=== PATIENT | male | born 1965 | race Caucasian/White ===

== ENCOUNTER 2016-11-14 23:58 | Emergency (ER) | payer SELFPAY ==
[~2016-11-14] VITALS: Ht 172.7 cm; Wt 79.4 kg
[2016-11-14 23:58] VITALS: BP 184/94; PULSE 104; RESP 20; TEMP 99.5; O2SAT 96
[2016-11-15] MEDS ORDERED: NACL 0.9% 1,000 ML IV ONE
== END 2016-11-15 00:20 | disposition left against medical advice (07) ==
LOC: SED 23:58
DX: G40.89 Other seizures (principal); R03.0 Elevated blood-pressure reading, without diagnosis of hypertension; Z53.20 Procedure and treatment not carried out because of patient's decision for unspecified reasons; S00.512A Abrasion of oral cavity, initial encounter; X58.XXXA Exposure to other specified factors, initial encounter; Y93.89 Activity, other specified; Y92.89 Other specified places as the place of occurrence of the external cause; Y99.8 Other external cause status
CPT/HCPCS: 99283

== ENCOUNTER 2016-12-24 13:01 | Inpatient (IN) | payer SELFPAY ==
[~2016-12-24] VITALS: Ht 175.3 cm; Wt 79.4 kg
[2016-12-24 13:01] VITALS: BP_SYST 139
[2016-12-24] MEDS ORDERED: NACL 0.9% 1,000 ML IV ONE (13:08)
[2016-12-24] MEDS ORDERED: ONDANSETRON HCL 4 MG/2 ML VIAL IVP ONE ×2 (13:15→15:00)
[2016-12-24] MEDS ORDERED: BACITRACIN 1 GM OINT TP ONE (13:15)
[2016-12-24] MEDS ORDERED: MORPHINE 4 MG/ML INJ. SYRINGE IVP ONE ×2 (13:15→15:00)
[2016-12-24] MEDS ORDERED: DIPH-TET-PERTUS Vaccine 0.5 ML VIAL (ADACEL) IM ONE (13:15)
[2016-12-24] MEDS ORDERED: IOHEXOL 100 ML IV ONE (13:30)
[2016-12-24 13:39] LABS: BASOPHILS # (AUTO) 0.1 K/uL (0.0-0.2); BASOPHILS % (AUTO) 0.5 % (0.0-2.0); EOSINOPHILS # (AUTO) 0.2 K/uL (0.0-0.4); EOSINOPHILS % (AUTO) 2.3 % (0.0-4.0); HEMATOCRIT 40.6 % (36-54); HEMOGLOBIN 13.7 g/dL (14.0-18.0); LYMPHOCYTES # (AUTO) 1.8 K/uL (1.0-5.5); LYMPHOCYTES % (AUTO) 16.7 % (20.5-51.5); MEAN CORPUSCULAR HEMOGLOBIN 33 pg (27-31); MEAN CORPUSCULAR HGB CONC 34 % (32-36); MEAN CORPUSCULAR VOLUME 97 fL (79.0-98.0); MONOCYTES # (AUTO) 0.8 K/uL (0.0-1.0); MONOCYTES % (AUTO) 7.7 % (1.7-9.3); NEUTROPHILS # (AUTO) 7.8 K/uL (1.8-7.7); NEUTROPHILS % (AUTO) 72.8 % (40.0-70.0); PLATELET COUNT (AUTO) 260 K/uL (130-430); RED BLOOD CELL COUNT(AUTO) 4.18 MIL/uL (4.2-6.2); RED CELL DISTRIBUTION WIDTH 12.9 % (9.0-15.0); WHITE BLOOD COUNT (AUTO) 10.6 K/uL (4.8-10.8)
[2016-12-24 13:48] LABS: ANION GAP 8 (5-15); CALCIUM 8.9 mg/dL (8.4-11.0); CHLORIDE 106 mmol/L (98-107); CREATININE 0.91 mg/dL (0.55-1.30); GLUCOSE 110 mg/dL (70-99); POTASSIUM 3.8 mmol/L (3.5-5.1); SODIUM SERUM 140 mmol/L (136-145); UREA NITROGEN, BLOOD 17 mg/dL (8-21)
[2016-12-24 13:49] LABS: PROTHROMBIN TIME 10.8 SECS (9.5-12.5)
[2016-12-24 13:50] LABS: GFR AFRICAN AMERICAN 113 mL/min (>90)
[2016-12-24 13:53] LABS: ALANINE AMINOTRANSFERASE 30 U/L (12-78); ALBUMIN 4.1 g/dL (3.4-4.8); ASPARTATE AMINOTRANSFERASE 29 U/L (10-37); LIPASE 195 U/L (73-393); TOTAL BILIRUBIN 0.7 mg/dL (0.0-1.0); TOTAL PROTEIN, SERUM 7.1 g/dL (6.4-8.3)
[2016-12-24 13:59] LABS: ALCOHOL, BLOOD < 3 mg/dL (<10)
[2016-12-24] MEDS ORDERED: CEFAZOLIN 1 GM IVPB PREMIX 50 ML IV ONE (14:15)
[2016-12-24 15:37] LABS: BILIRUBIN,URINE NEGATIVE (NEGATIVE); BLOOD, URINE NEGATIVE (NEGATIVE); CLARITY/URINE CLEAR (CLEAR); COLOR,URINE YELLOW (YELLOW); GLUCOSE,URINE NEGATIVE (NEGATIVE); KETONES,URINE TRACE (NEGATIVE); LEUKOCYTE ESTERASE ,URINE NEGATIVE (NEGATIVE); NITRITE, URINE NEGATIVE (NEGATIVE); PROTEIN URINE NEGATIVE (NEGATIVE); UROBILINOGEN,URINE 0.2 (0.2-1.0)
[2016-12-24 16:56] VITALS: BP_SYST 157
[2016-12-24] MEDS: MORPHINE 2 MG/ML INJ. SYRINGE IVP PRN ×2 (18:27→22:29)
[2016-12-24 20:00] VITALS: BP_SYST 152
[2016-12-24] MEDS ORDERED: MORPHINE 2 MG/ML INJ. SYRINGE IVP PRN (21:15)
[2016-12-24] MEDS ORDERED: LORazepam 2 MG/ML VIAL IVP PRN (21:15)
[2016-12-24] MEDS ORDERED: ONDANSETRON HCL 4 MG/2 ML VIAL IVP PRN (21:15)
[2016-12-24] MEDS ORDERED: MAGNESIUM SULFATE 50 ML IV PRN (21:15)
[2016-12-24] MEDS ORDERED: POTASSIUM CHLORIDE 10 MEQ TAB.PRT.SR PO PRN (21:15)
[2016-12-24] MEDS ORDERED: ACETAMINOPHEN 325 MG TABLET PO PRN (21:15)
[2016-12-24] MEDS ORDERED: DOCUSATE SODIUM 100 MG CAPSULE PO PRN (21:15)
[2016-12-25 00:18] VITALS: BP_SYST 143
[2016-12-25] MEDS: MORPHINE 2 MG/ML INJ. SYRINGE IVP PRN ×2 (02:32→06:27)
[2016-12-25 04:04] VITALS: BP_SYST 152
[2016-12-25 08:00] VITALS: BP_SYST 152
[2016-12-25] MEDS: HYDROmorphone 2 MG/ML VIAL IVP PRN ×3 (08:31→20:16)
[2016-12-25] MEDS: NICOTINE 21 MG/24 HR PATCH.TD24 TD SCH (08:31)
[2016-12-25 12:13] VITALS: BP_SYST 140
[2016-12-25 16:31] VITALS: BP_SYST 141
[2016-12-25 21:08] VITALS: BP_SYST 137
[2016-12-26] VITALS (7 sets, daily range): BP systolic 118–169
[2016-12-26] MEDS: HYDROmorphone 2 MG/ML VIAL IVP PRN ×4 (01:22→20:09)
[2016-12-26] MEDS: HYDROCHLOROTHIAZIDE 25 MG TABLET (HCTZ) PO SCH (09:10)
[2016-12-26] MEDS: MORPHINE SULFATE 15 MG TABLET.SA PO SCH ×2 (09:10→22:12)
[2016-12-26] MEDS: NICOTINE 21 MG/24 HR PATCH.TD24 TD SCH (09:11)
[2016-12-26] MEDS: ZOLPIDEM TARTRATE 5 MG TABLET PO PRN (22:12)
[2016-12-27 04:19] VITALS: BP_SYST 163
[2016-12-27] MEDS: HYDROmorphone 2 MG/ML VIAL IVP PRN ×3 (07:49→20:05)
[2016-12-27 08:00] VITALS: BP_SYST 141
[2016-12-27] MEDS: NICOTINE 21 MG/24 HR PATCH.TD24 TD SCH (09:31)
[2016-12-27] MEDS: HYDROCHLOROTHIAZIDE 25 MG TABLET (HCTZ) PO SCH (09:32)
[2016-12-27] MEDS: MORPHINE SULFATE 15 MG TABLET.SA PO SCH ×2 (09:33→20:59)
[2016-12-27 12:28] VITALS: BP_SYST 141
[2016-12-27 16:08] VITALS: BP_SYST 134
[2016-12-27 19:00] VITALS: BP_SYST 180
[2016-12-27 20:00] VITALS: BP_SYST 180
[2016-12-28] MEDS: HYDROmorphone 2 MG/ML VIAL IVP PRN ×4 (00:07→13:09)
[2016-12-28 00:18] VITALS: BP_SYST 170
[2016-12-28] MEDS ORDERED: cloNIDine HCL 0.2 MG TABLET PO PRN (00:45)
[2016-12-28] MEDS: ZOLPIDEM TARTRATE 5 MG TABLET PO PRN (01:08)
[2016-12-28 04:03] VITALS: BP_SYST 134
[2016-12-28 08:14] VITALS: BP_SYST 107
[2016-12-28] MEDS: HYDROCHLOROTHIAZIDE 25 MG TABLET (HCTZ) PO SCH (08:39)
[2016-12-28] MEDS: MORPHINE SULFATE 15 MG TABLET.SA PO SCH (08:39)
[2016-12-28] MEDS: NICOTINE 21 MG/24 HR PATCH.TD24 TD SCH (08:39)
[2016-12-28 13:00] VITALS: BP_SYST 159
[2016-12-28 16:39] VITALS: BP_SYST 130
[2016-12-28 16:50] VITALS: BP_SYST 130
== END 2016-12-28 17:06 | disposition home or self-care (01) | DRG 552 ==
LOC: SED 13:01 → SMU 15:30
PROVIDERS: ADMIT General Practice; ATTEND General Practice
DX: S32.018A Other fracture of first lumbar vertebra, initial encounter for closed fracture (principal); S22.088A Other fracture of T11-T12 vertebra, initial encounter for closed fracture; S22.31XA Fracture of one rib, right side, initial encounter for closed fracture; S32.028A Other fracture of second lumbar vertebra, initial encounter for closed fracture; W17.89XA Other fall from one level to another, initial encounter; Y92.098 Other place in other non-institutional residence as the place of occurrence of the external cause; Y99.8 Other external cause status; Y93.89 Activity, other specified
CPT/HCPCS: 36415; 70450-TC; 71010; 71260-TC; 72125-TC; 72148; 80053; 81003; 83690-TC; 84484; 85025; 85610-TC; 85730-TC; 86886; 86900; 86901; 93005; 96365; 96375; 99285; G0482; J0690; J1170; J2270; J2405; J7030; Q9967

== ENCOUNTER 2017-05-12 10:46 | Inpatient (IN) | payer MEDICAID ==
[~2017-05-12] VITALS: Ht 175.3 cm; Wt 86.2 kg
[2017-05-12 10:54] VITALS: BP_SYST 155
[2017-05-12] MEDS ORDERED: LORazepam 2 MG/ML VIAL (FOR ER USE) ONE (10:56)
[2017-05-12] MEDS ORDERED: HALOPERIDOL LACTATE 5 MG/ML VIAL ONE (10:57)
[2017-05-12] MEDS ORDERED: DIPHENHYDRAMINE INJ 50 MG/ML VIAL ONE (10:57)
[2017-05-12] MEDS ORDERED: HALOPERIDOL LACTATE 5 MG/ML VIAL IM ONE ×2 (11:00→11:30)
[2017-05-12] MEDS ORDERED: DIPHENHYDRAMINE INJ 50 MG/ML VIAL IM ONE (11:00)
[2017-05-12] MEDS ORDERED: LORazepam 2 MG/ML VIAL (FOR ER USE) IM ONE (11:00)
[2017-05-12] MEDS ORDERED: NACL 0.9% 1,000 ML IV ONE (11:30)
[2017-05-12 11:36] LABS: BASOPHILS # (AUTO) 0.1 K/uL (0.0-0.2); BASOPHILS % (AUTO) 0.6 % (0.0-2.0); EOSINOPHILS # (AUTO) 0.1 K/uL (0.0-0.4); EOSINOPHILS % (AUTO) 0.9 % (0.0-4.0); HEMOGLOBIN 13.9 g/dL (14.0-18.0); LYMPHOCYTES # (AUTO) 1.4 K/uL (1.0-5.5); LYMPHOCYTES % (AUTO) 14.4 % (20.5-51.5); MEAN CORPUSCULAR HEMOGLOBIN 33 pg (27-31); MEAN CORPUSCULAR HGB CONC 33 % (32-36); MEAN CORPUSCULAR VOLUME 98 fL (79.0-98.0); MONOCYTES # (AUTO) 1.1 K/uL (0.0-1.0); MONOCYTES % (AUTO) 11.6 % (1.7-9.3); NEUTROPHILS % (AUTO) 72.5 % (40.0-70.0); PLATELET COUNT (AUTO) 206 K/uL (130-430); RED BLOOD CELL COUNT(AUTO) 4.29 MIL/uL (4.2-6.2); RED CELL DISTRIBUTION WIDTH 13.6 % (9.0-15.0); WHITE BLOOD COUNT (AUTO) 9.7 K/uL (4.8-10.8)
[2017-05-12 11:51] LABS: CREATININE 0.72 mg/dL (0.55-1.30); POTASSIUM 4.2 mmol/L (3.5-5.1)
[2017-05-12 11:55] LABS: ALBUMIN 3.9 g/dL (3.4-4.8); TOTAL BILIRUBIN 1.5 mg/dL (0.0-1.0)
[2017-05-12 12:39] LABS: BILIRUBIN,URINE NEGATIVE (NEGATIVE); BLOOD, URINE NEGATIVE (NEGATIVE); CLARITY/URINE CLEAR (CLEAR); COLOR,URINE YELLOW (YELLOW); GLUCOSE,URINE NEGATIVE (NEGATIVE); KETONES,URINE NEGATIVE (NEGATIVE); LEUKOCYTE ESTERASE ,URINE NEGATIVE (NEGATIVE); NITRITE, URINE NEGATIVE (NEGATIVE); PROTEIN URINE NEGATIVE (NEGATIVE); UROBILINOGEN,URINE 0.2 (0.2-1.0)
[2017-05-12 12:57] LABS: CANNABINOID, URINE POSITIVE (NEG <=50)
[2017-05-12 12:58] LABS: BARBITURATE, URINE NEGATIVE (NEG <=200); BENZODIAZEPINE, URINE NEGATIVE (NEG <=150); COCAINE, URINE NEGATIVE (NEG <=150); METHAMPHETAMINES SCREEN,URINE NEGATIVE (NEG <=500); OPIATE, URINE NEGATIVE (NEG <=100); PHENCYCLIDINE SCREEN,URINE NEGATIVE (NEG <=25); UR TRICYCLIC ANTIDEPRESSANTS NEGATIVE (NEG <=300); URINE AMPHETAMINE NEGATIVE (NEG <=500); URINE METHADONE NEGATIVE (NEG <=200); URINE OXYCODONE SCREEN NEGATIVE (NEG <=100); URINE PROPOXYPHENE SCREEN NEGATIVE (NEG <=300)
[2017-05-12 13:41] VITALS: BP_SYST 137
[2017-05-12 15:23] VITALS: BP_SYST 113
[2017-05-12] MEDS: PANTOPRAZOLE SODIUM 40 MG TAB PO SCH (16:00)
[2017-05-12] MEDS ORDERED: ONDANSETRON HCL 4 MG/2 ML VIAL IVP PRN (16:00)
[2017-05-12] MEDS ORDERED: ACETAMINOPHEN 325 MG TABLET PO PRN (16:00)
[2017-05-12] MEDS: FOLIC ACID 1 MG, THIAMINE HCL 100 MG, MAGNESIUM SULFATE 1 GM, MVI 10 ML in NACL 0.9% 1,... IV SCH (19:04)
[2017-05-12] MEDS: chlordiazePOXIDE HCL 25 MG CAPSULE PO SCH (20:20)
[2017-05-12 23:40] VITALS: BP_SYST 115
[2017-05-13] MEDS: POTASSIUM CHLORIDE 10 MEQ in NACL 0.9% 1,000 ML IV SCH ×2 (02:00→08:31)
[2017-05-13 03:41] VITALS: BP_SYST 131
[2017-05-13 06:26] LABS: BASOPHILS # (AUTO) 0.1 K/uL (0.0-0.2); BASOPHILS % (AUTO) 1.6 % (0.0-2.0); EOSINOPHILS # (AUTO) 0.3 K/uL (0.0-0.4); EOSINOPHILS % (AUTO) 5.6 % (0.0-4.0); HEMATOCRIT 39.1 % (36-54); LYMPHOCYTES # (AUTO) 1.3 K/uL (1.0-5.5); LYMPHOCYTES % (AUTO) 22.1 % (20.5-51.5); MEAN CORPUSCULAR HEMOGLOBIN 33 pg (27-31); MEAN CORPUSCULAR HGB CONC 33 % (32-36); MEAN CORPUSCULAR VOLUME 99 fL (79.0-98.0); MONOCYTES # (AUTO) 0.6 K/uL (0.0-1.0); MONOCYTES % (AUTO) 10.5 % (1.7-9.3); NEUTROPHILS # (AUTO) 3.8 K/uL (1.8-7.7); NEUTROPHILS % (AUTO) 60.2 % (40.0-70.0); PLATELET COUNT (AUTO) 154 K/uL (130-430); RED BLOOD CELL COUNT(AUTO) 3.95 MIL/uL (4.2-6.2); RED CELL DISTRIBUTION WIDTH 13.7 % (9.0-15.0); WHITE BLOOD COUNT (AUTO) 6.1 K/uL (4.8-10.8)
[2017-05-13 06:47] LABS: ALBUMIN 3.2 g/dL (3.4-4.8); CALCIUM 8.5 mg/dL (8.4-11.0); CREATININE 0.78 mg/dL (0.55-1.30); POTASSIUM 4.1 mmol/L (3.5-5.1); THYROID STIMULATING HORMONE 0.11 uIu/mL (0.34-4.82); TOTAL BILIRUBIN 1.2 mg/dL (0.0-1.0)
[2017-05-13 08:00] VITALS: BP_SYST 155
[2017-05-13] MEDS: chlordiazePOXIDE HCL 25 MG CAPSULE PO SCH ×3 (08:31→20:21)
[2017-05-13] MEDS: PANTOPRAZOLE SODIUM 40 MG TAB PO SCH (08:31)
[2017-05-13 12:00] VITALS: BP_SYST 132
[2017-05-13 19:00] VITALS: BP_SYST 151
[2017-05-13 20:00] VITALS: BP_SYST 151
[2017-05-13] MEDS: LORazepam 2 MG/ML VIAL IVP PRN (20:22)
[2017-05-13] MEDS: FOLIC ACID 1 MG, THIAMINE HCL 100 MG, MAGNESIUM SULFATE 1 GM, MVI 10 ML in NACL 0.9% 1,... IV SCH (20:25)
[2017-05-14 00:06] VITALS: BP_SYST 119
[2017-05-14 06:17] VITALS: BP_SYST 122
[2017-05-14 06:42] LABS: ALBUMIN 3.1 g/dL (3.4-4.8); BILIRUBIN,DIRECT 0.3 mg/dL (0.0-0.3); CALCIUM 8.9 mg/dL (8.4-11.0); CREATININE 0.77 mg/dL (0.55-1.30); TOTAL BILIRUBIN 1.4 mg/dL (0.0-1.0)
[2017-05-14 06:56] LABS: BASOPHILS # (AUTO) 0.1 K/uL (0.0-0.2); BASOPHILS % (AUTO) 1.4 % (0.0-2.0); EOSINOPHILS # (AUTO) 0.3 K/uL (0.0-0.4); EOSINOPHILS % (AUTO) 4.9 % (0.0-4.0); HEMOGLOBIN 13.5 g/dL (14.0-18.0); LYMPHOCYTES # (AUTO) 1.4 K/uL (1.0-5.5); LYMPHOCYTES % (AUTO) 22.3 % (20.5-51.5); MEAN CORPUSCULAR HEMOGLOBIN 34 pg (27-31); MEAN CORPUSCULAR HGB CONC 34 % (32-36); MEAN CORPUSCULAR VOLUME 99 fL (79.0-98.0); MONOCYTES # (AUTO) 0.6 K/uL (0.0-1.0); NEUTROPHILS # (AUTO) 3.8 K/uL (1.8-7.7); NEUTROPHILS % (AUTO) 61.4 % (40.0-70.0); PLATELET COUNT (AUTO) 132 K/uL (130-430); RED BLOOD CELL COUNT(AUTO) 4.03 MIL/uL (4.2-6.2); RED CELL DISTRIBUTION WIDTH 13.3 % (9.0-15.0); WHITE BLOOD COUNT (AUTO) 6.2 K/uL (4.8-10.8)
[2017-05-14 08:10] VITALS: BP_SYST 124
[2017-05-14] MEDS: chlordiazePOXIDE HCL 25 MG CAPSULE PO SCH (09:34)
[2017-05-14] MEDS: PANTOPRAZOLE SODIUM 40 MG TAB PO SCH (09:34)
[2017-05-14 12:00] VITALS: BP_SYST 144
[2017-05-14] MEDS: LORazepam 2 MG/ML VIAL IVP PRN (14:24)
[2017-05-14 16:21] VITALS: BP_SYST 124
== END 2017-05-14 16:50 | disposition home or self-care (01) | DRG 775 ==
LOC: SED 10:46 → STU 12:44 → SMU 05-13 15:32
PROVIDERS: ADMIT Internal Medicine; ATTEND Internal Medicine
DX: F10.229 Alcohol dependence with intoxication, unspecified (principal); G92 Toxic encephalopathy; F12.10 Cannabis abuse, uncomplicated; Z87.81 Personal history of (healed) traumatic fracture; F32.0 Major depressive disorder, single episode, mild; K70.9 Alcoholic liver disease, unspecified
CPT/HCPCS: 36415; 71010; 76700-TC; 80048; 80053; 80076; 80307; 81003; 83735-TC; 84439; 84443-TC; 85025; 93005; 96360; 96372; 99285; G0482; J1200; J1630; J2060; J3411; J3475; J3480; J3490; J7030

== ENCOUNTER 2017-10-06 02:34 | Emergency (ER) | payer MEDICAID | END 2017-10-06 02:35 | LOC: MERGE 02:34 → SED 02:34 | DX: Z02.89 Encounter for other administrative examinations (principal); F10.129 Alcohol abuse with intoxication, unspecified | CPT/HCPCS: 99283 ==

== ENCOUNTER 2018-01-23 12:25 | Inpatient (IN) | payer MEDICAID ==
[~2018-01-23] VITALS: Ht 172.7 cm; Wt 79.8 kg
[2018-01-23 12:25] VITALS: BP_SYST 115
[~2018-01-23 12:25] MED LIST: LEVE500T9 PO
[2018-01-23] MEDS ORDERED: NACL 0.9% 1,000 ML IV ONE ×2 (12:27→12:45)
[2018-01-23] MEDS ORDERED: FOLIC ACID 1 MG, THIAMINE HCL 100 MG, MAGNESIUM SULFATE 1 GM, MVI 10 ML in NACL 0.9% 1,... IV ONE (12:30)
[2018-01-23 13:12] LABS: BASOPHILS # (AUTO) 0.1 K/uL (0.0-0.2); BASOPHILS % (AUTO) 1.4 % (0.0-2.0); EOSINOPHILS # (AUTO) 0.3 K/uL (0.0-0.4); EOSINOPHILS % (AUTO) 3.7 % (0.0-4.0); HEMATOCRIT 42.6 % (36-54); LYMPHOCYTES # (AUTO) 1.5 K/uL (1.0-5.5); LYMPHOCYTES % (AUTO) 17.6 % (20.5-51.5); MEAN CORPUSCULAR HEMOGLOBIN 32 pg (27-31); MEAN CORPUSCULAR HGB CONC 33 % (32-36); MEAN CORPUSCULAR VOLUME 97 fL (79.0-98.0); MONOCYTES # (AUTO) 0.7 K/uL (0.0-1.0); MONOCYTES % (AUTO) 8.2 % (1.7-9.3); NEUTROPHILS # (AUTO) 6.2 K/uL (1.8-7.7); NEUTROPHILS % (AUTO) 69.1 % (40.0-70.0); PLATELET COUNT (AUTO) 278 K/uL (130-430); RED BLOOD CELL COUNT(AUTO) 4.38 MIL/uL (4.2-6.2); RED CELL DISTRIBUTION WIDTH 12.7 % (9.0-15.0); WHITE BLOOD COUNT (AUTO) 8.8 K/uL (4.8-10.8)
[2018-01-23 13:20] LABS: ANION GAP 8 (5-15); CALCIUM 8.7 mg/dL (8.4-11.0); CHLORIDE 108 mmol/L (98-107); CREATININE 0.72 mg/dL (0.55-1.30); GLUCOSE 92 mg/dL (70-99); POTASSIUM 4.3 mmol/L (3.5-5.1); SODIUM SERUM 141 mmol/L (136-145); UREA NITROGEN, BLOOD 12 mg/dL (8-21)
[2018-01-23 13:22] LABS: GFR AFRICAN AMERICAN 147 mL/min (>90)
[2018-01-23 13:25] LABS: ALANINE AMINOTRANSFERASE 35 U/L (12-78); ALBUMIN 3.7 g/dL (3.4-4.8); ALCOHOL, BLOOD 279 mg/dL (<10); AMYLASE 80 U/L (0-100); ASPARTATE AMINOTRANSFERASE 27 U/L (10-37); LIPASE 133 U/L (73-393); TOTAL BILIRUBIN 0.4 mg/dL (0.0-1.0)
[2018-01-23 13:26] LABS: PROTHROMBIN TIME 9.7 SECS (9.5-12.5)
[2018-01-23 13:38] LABS: ACETAMINOPHEN < 1 ug/mL (1-30)
[2018-01-23 14:09] LABS: BILIRUBIN,URINE NEGATIVE (NEGATIVE); BLOOD, URINE NEGATIVE (NEGATIVE); CLARITY/URINE CLEAR (CLEAR); COLOR,URINE YELLOW (YELLOW); GLUCOSE,URINE NEGATIVE (NEGATIVE); KETONES,URINE NEGATIVE (NEGATIVE); LEUKOCYTE ESTERASE ,URINE NEGATIVE (NEGATIVE); NITRITE, URINE NEGATIVE (NEGATIVE); PH,URINE 6.5 (5.0-8.0); PROTEIN URINE NEGATIVE (NEGATIVE); UROBILINOGEN,URINE 0.2 (0.2-1.0)
[2018-01-23 14:22] LABS: BARBITURATE, URINE NEGATIVE (NEG <=200); BENZODIAZEPINE, URINE POSITIVE (NEG <=150); CANNABINOID, URINE NEGATIVE (NEG <=50); COCAINE, URINE NEGATIVE (NEG <=150); METHAMPHETAMINES SCREEN,URINE NEGATIVE (NEG <=500); OPIATE, URINE NEGATIVE (NEG <=100); PHENCYCLIDINE SCREEN,URINE NEGATIVE (NEG <=25); UR TRICYCLIC ANTIDEPRESSANTS NEGATIVE (NEG <=300); URINE AMPHETAMINE NEGATIVE (NEG <=500); URINE METHADONE NEGATIVE (NEG <=200); URINE OXYCODONE SCREEN NEGATIVE (NEG <=100); URINE PROPOXYPHENE SCREEN NEGATIVE (NEG <=300)
[2018-01-23] MEDS ORDERED: NACL 0.9% 1,000 ML IV SCH (16:45)
[2018-01-23 17:17] VITALS: BP_SYST 152
[2018-01-23] MEDS ORDERED: LEVE750T4 PO (17:27)
[2018-01-23] MEDS ORDERED: cloNIDine HCL 0.1 MG TABLET PO PRN (18:15)
[2018-01-23] MEDS ORDERED: LORazepam 1 MG TABLET PO PRN (18:15)
[2018-01-23] MEDS ORDERED: LORazepam 2 MG/ML VIAL IVP PRN (18:30)
[2018-01-23] MEDS ORDERED: levETIRAcetam 500 MG TABLET PO SCH (21:00)
[2018-01-23] MEDS ORDERED: chlordiazePOXIDE HCL 25 MG CAPSULE PO SCH (21:00)
[2018-01-24] MEDS ORDERED: FOLIC ACID 1 MG TABLET PO SCH (09:00)
[2018-01-24] MEDS ORDERED: THIAMINE HCL 100 MG TABLET PO SCH (09:00)
== END 2018-01-23 18:53 | disposition left against medical advice (07) | DRG 53 ==
LOC: SED 12:25 → STU 16:31
PROVIDERS: ADMIT Internal Medicine; ATTEND Internal Medicine
DX: G40.909 Epilepsy, unspecified, not intractable, without status epilepticus (principal); G62.1 Alcoholic polyneuropathy; F10.229 Alcohol dependence with intoxication, unspecified; F17.210 Nicotine dependence, cigarettes, uncomplicated; Z53.21 Procedure and treatment not carried out due to patient leaving prior to being seen by health care provider; F60.2 Antisocial personality disorder
CPT/HCPCS: 36415; 70450-TC; 71045; 80053; 80307; 81003; 82150-TC; 82542; 82550-TC; 83690-TC; 84484; 85025; 85610-TC; 85730-TC; 93005; 96360; 96361; 99285; G0480; G0481; G0482; J3411; J3475; J3490; J7030

== ENCOUNTER 2018-03-17 15:51 | Emergency (ER) | payer MEDICAID ==
[~2018-03-17] VITALS: Ht 177.8 cm; Wt 86.2 kg
[~2018-03-17 15:51] MED LIST changes: +LEVE750T4 PO
[2018-03-17 15:58] VITALS: BP_SYST 115
== END 2018-03-17 16:45 | disposition left against medical advice (07) ==
LOC: SED 15:51
DX: F10.129 Alcohol abuse with intoxication, unspecified (principal)
CPT/HCPCS: 99283

== ENCOUNTER 2018-12-17 19:16 | Emergency (ER) | payer MEDICAID ==
[~2018-12-17] VITALS: Ht 170.2 cm; Wt 74.8 kg
[2018-12-17 19:16] VITALS: BP_SYST 108
--- NOTE | 2018-12-17 19:16 | NUR ---
Patient to ER bed 3 to gown for evaluation. Side rails up. Report given to WILLY Forde.
--- NOTE | 2018-12-17 19:45 | NUR ---
Pt BIBA post seizure. Pt states "he had a seizure behind stater bros and call 911." No s/s of distress noted at this time. VSS. Pt has Hx of seizures, and states he takes gabapentin and Keppra. No other Hx. Will continue to monitor.
--- NOTE | 2018-12-17 20:00 | NUR ---
Dr. Holt at bedside examining Pt.
[2018-12-17] MEDS ORDERED: GABAPENTIN 300 MG CAPSULE PO ONE (20:15)
[2018-12-17] MEDS ORDERED: levETIRAcetam 500 MG TABLET PO ONE (20:15)
--- NOTE | 2018-12-17 20:35 | NUR ---
# 20 gauge angiocath placed to LAC. Use of asceptic technique. Opsite placed over site. Blood return noted. Blood for lab drawn from site. Flushed with 10 cc of normal saline. No evidence of infiltration noted. Patient tolerated well.
[2018-12-17 20:45] LABS: BASOPHILS % (AUTO) 0.7 % (0.0-2.0); EOSINOPHILS # (AUTO) 0.2 K/uL (0.0-0.4); EOSINOPHILS % (AUTO) 2.7 % (0.0-4.0); HEMATOCRIT 37.4 % (36-54); HEMOGLOBIN 12.7 g/dL (14.0-18.0); LYMPHOCYTES # (AUTO) 1.5 K/uL (1.0-5.5); LYMPHOCYTES % (AUTO) 21.5 % (20.5-51.5); MEAN CORPUSCULAR HEMOGLOBIN 33 pg (27-31); MEAN CORPUSCULAR HGB CONC 34 % (32-36); MEAN CORPUSCULAR VOLUME 97 fL (79.0-98.0); MONOCYTES # (AUTO) 0.9 K/uL (0.0-1.0); MONOCYTES % (AUTO) 12.5 % (1.7-9.3); NEUTROPHILS # (AUTO) 4.3 K/uL (1.8-7.7); NEUTROPHILS % (AUTO) 62.6 % (40.0-70.0); PLATELET COUNT (AUTO) 187 K/uL (130-430); RED BLOOD CELL COUNT(AUTO) 3.85 MIL/uL (4.2-6.2); RED CELL DISTRIBUTION WIDTH 13.8 % (9.0-15.0); WHITE BLOOD COUNT (AUTO) 6.9 K/uL (4.8-10.8)
[2018-12-17 20:55] LABS: ANION GAP 7 (5-15); CALCIUM 8.8 mg/dL (8.4-11.0); CHLORIDE 107 mmol/L (98-107); CREATININE 1.07 mg/dL (0.55-1.30); GFR AFRICAN AMERICAN 93 mL/min (>90); GLUCOSE 92 mg/dL (70-99); POTASSIUM 4.8 mmol/L (3.5-5.1); SODIUM SERUM 141 mmol/L (136-145); UREA NITROGEN, BLOOD 17 mg/dL (8-21)
[2018-12-17 21:08] LABS: ALANINE AMINOTRANSFERASE 62 U/L (12-78); ALBUMIN 3.2 g/dL (3.4-4.8); ASPARTATE AMINOTRANSFERASE 46 U/L (10-37); TOTAL BILIRUBIN 0.7 mg/dL (0.0-1.0)
[2018-12-17 21:09] LABS: ALCOHOL, BLOOD < 3 mg/dL (<10)
[2018-12-17 22:17] VITALS: BP_SYST 116
--- NOTE | 2018-12-17 22:17 | NUR ---
Patient given written and verbal discharge instructions and verbalizes understanding. ER MD discussed with patient the results and treatment provided. Patient in stable condition. ID arm band removed. IV catheter self removed by self, no active bleeding. No Rx given. Patient educated on pain management and to follow up with PMD. Pain Scale 0/10. Opportunity for questions provided and answered. Medication side effect fact sheet provided.
== END 2018-12-17 22:17 | disposition home or self-care (01) ==
LOC: SED 19:16
DX: R56.9 Unspecified convulsions (principal); R03.0 Elevated blood-pressure reading, without diagnosis of hypertension
CPT/HCPCS: 80053; 82542; 85025; 99283; G0482; 36415

== ENCOUNTER 2019-10-02 15:59 | Emergency (ER) | payer MEDICAID ==
[~2019-10-02] VITALS: Ht 172.7 cm; Wt 77.1 kg
[2019-10-02 16:00] VITALS: BP_SYST 148
[2019-10-02] MEDS ORDERED: FOLIC ACID 1 MG, THIAMINE HCL 100 MG, MAGNESIUM SULFATE 1 GM, MVI 10 ML in NACL 0.9% 1,... IV ONE (16:15)
[2019-10-02] MEDS ORDERED: MAGNESIUM SULFATE 1 GM/2 ML VIAL ONE (16:30)
[2019-10-02] MEDS ORDERED: MVI 10 ML VIAL IV ONE (16:30)
[2019-10-02] MEDS ORDERED: FOLIC ACID 5 MG/ML VIAL IV ONE (16:30)
[2019-10-02] MEDS ORDERED: THIAMINE HCL 100 MG/ML VIAL ONE (16:30)
[2019-10-02 16:36] LABS: BASOPHILS # (AUTO) 0.3 K/uL (0.0-0.2); BASOPHILS % (AUTO) 2.3 % (0.0-2.0); EOSINOPHILS % (AUTO) 0.3 % (0.0-4.0); HEMATOCRIT 47.6 % (36-54); HEMOGLOBIN 15.9 g/dL (14.0-18.0); LYMPHOCYTES # (AUTO) 1.6 K/uL (1.0-5.5); LYMPHOCYTES % (AUTO) 13.4 % (20.5-51.5); MEAN CORPUSCULAR HEMOGLOBIN 33 pg (27-31); MEAN CORPUSCULAR HGB CONC 33 % (32-36); MEAN CORPUSCULAR VOLUME 98 fL (79.0-98.0); MONOCYTES % (AUTO) 8.5 % (1.7-9.3); NEUTROPHILS # (AUTO) 8.9 K/uL (1.8-7.7); NEUTROPHILS % (AUTO) 75.5 % (40.0-70.0); PLATELET COUNT (AUTO) 150 K/uL (130-430); RED BLOOD CELL COUNT(AUTO) 4.83 MIL/uL (4.2-6.2); RED CELL DISTRIBUTION WIDTH 14.5 % (9.0-15.0); WHITE BLOOD COUNT (AUTO) 11.7 K/uL (4.8-10.8)
[2019-10-02 17:01] LABS: BARBITURATE, URINE NEGATIVE (NEG <=200)
[2019-10-02 17:02] LABS: BENZODIAZEPINE, URINE NEGATIVE (NEG <=150); CANNABINOID, URINE POSITIVE (NEG <=50); COCAINE, URINE NEGATIVE (NEG <=150); METHAMPHETAMINES SCREEN,URINE POSITIVE (NEG <=500); OPIATE, URINE NEGATIVE (NEG <=100); PHENCYCLIDINE SCREEN,URINE NEGATIVE (NEG <=25); UR TRICYCLIC ANTIDEPRESSANTS NEGATIVE (NEG <=300); URINE AMPHETAMINE NEGATIVE (NEG <=500); URINE METHADONE NEGATIVE (NEG <=200); URINE OXYCODONE SCREEN NEGATIVE (NEG <=100); URINE PROPOXYPHENE SCREEN NEGATIVE (NEG <=300)
[2019-10-02 17:05] LABS: CALCIUM 8.3 mg/dL (8.4-11.0); CREATININE 0.98 mg/dL (0.55-1.30); POTASSIUM 4.2 mmol/L (3.5-5.1)
[2019-10-02] MEDS ORDERED: IBUPROFEN 600 MG TABLET ONE (17:43)
[2019-10-02] MEDS ORDERED: IBUPROFEN 600 MG TABLET PO ONE (17:45)
[2019-10-03 02:00] VITALS: BP_SYST 135
== END 2019-10-03 02:00 | disposition home or self-care (01) ==
LOC: SED 15:59
DX: L03.113 Cellulitis of right upper limb (principal); F10.229 Alcohol dependence with intoxication, unspecified; F17.210 Nicotine dependence, cigarettes, uncomplicated; Y90.8 Blood alcohol level of 240 mg/100 ml or more
CPT/HCPCS: 36415; 80048; 80307; 85025; 93005; 96365; 96366; 99285; J3411; J3475; J3490

== ENCOUNTER 2019-10-16 15:48 | Emergency (ER) | payer MEDICAID ==
[~2019-10-16] VITALS: Ht 172.7 cm; Wt 90.7 kg
[2019-10-16 15:57] VITALS: BP_SYST 156
[2019-10-16] MEDS ORDERED: levETIRAcetam 1,000 MG IV BAG 100 ML IV ONE (16:00)
[2019-10-16 16:11] LABS: BASOPHILS % (AUTO) 0.2 % (0.0-2.0); EOSINOPHILS % (AUTO) 0.1 % (0.0-4.0); HEMATOCRIT 38.8 % (36-54); LYMPHOCYTES # (AUTO) 0.7 K/uL (1.0-5.5); MEAN CORPUSCULAR HEMOGLOBIN 32 pg (27-31); MEAN CORPUSCULAR HGB CONC 34 % (32-36); MEAN CORPUSCULAR VOLUME 95 fL (79.0-98.0); MONOCYTES # (AUTO) 1.2 K/uL (0.0-1.0); MONOCYTES % (AUTO) 12.4 % (1.7-9.3); NEUTROPHILS # (AUTO) 8.1 K/uL (1.8-7.7); NEUTROPHILS % (AUTO) 80.3 % (40.0-70.0); PLATELET COUNT (AUTO) 186 K/uL (130-430); RED BLOOD CELL COUNT(AUTO) 4.07 MIL/uL (4.2-6.2); RED CELL DISTRIBUTION WIDTH 14.1 % (9.0-15.0); WHITE BLOOD COUNT (AUTO) 10.1 K/uL (4.8-10.8)
[2019-10-16 16:24] LABS: ANION GAP 12 (5-15); CALCIUM 9.1 mg/dL (8.4-11.0); CHLORIDE 100 mmol/L (98-107); CREATININE 1.47 mg/dL (0.55-1.30); GLUCOSE 124 mg/dL (70-99); POTASSIUM 3.7 mmol/L (3.5-5.1); SODIUM SERUM 137 mmol/L (136-145); UREA NITROGEN, BLOOD 13 mg/dL (8-21)
[2019-10-16 16:29] LABS: GFR AFRICAN AMERICAN 64 mL/min (>90)
[2019-10-16 16:30] LABS: ALANINE AMINOTRANSFERASE 81 U/L (12-78); ALBUMIN 3.4 g/dL (3.4-4.8); ASPARTATE AMINOTRANSFERASE 53 U/L (10-37); TOTAL BILIRUBIN 1.6 mg/dL (0.0-1.0)
[2019-10-16 16:32] LABS: ALCOHOL, BLOOD < 3 mg/dL (<10)
[2019-10-16] MEDS ORDERED: GABAPENTIN 100 MG CAPSULE PO ONE (17:30)
[2019-10-16 18:55] VITALS: BP_SYST 148
== END 2019-10-16 18:55 | disposition home or self-care (01) ==
LOC: SED 15:48
DX: R56.9 Unspecified convulsions (principal)
CPT/HCPCS: 36415; 80053; 83735; 85025; 96365; 99284; G0482; J1953